=== PATIENT | female | born 1945 | race Caucasian/White ===

== ENCOUNTER 2022-06-02 13:13 | Inpatient (IN) | payer MEDICARE, SELFPAY ==
[2022-06-02 13:54] LABS: #Eosinphils 0.2 thou/uL (0.0-0.7); #Lymphocytes 2.6 thou/uL (1.20-3.40); #Monocytes 0.5 thou/uL (0.11-0.59); #Neutrophils 4.4 thou/uL (1.40-6.50); %Basophils 0.5 % (0.0-1.0); %Eosinophils 2.1 % (0.0-10.0); %Lymphocytes 33.9 % (21.0-51.0); %Monocytes 6.4 % (0.0-10.0); %Neutrophils 57.1 % (42.0-75.0); Hemoglobin 13.1 g/dL (12.0-16.0); Mean Corpuscular HGB CONC 33.5 g/dL (32.0-36.0); Mean Corpuscular Volume 86.5 fL (78.0-98.0); Mean Platelet Volume 8.9 fL (7.4-10.4); Platelet Count 180 thou/uL (130-400); RBC Distribution Width 12.6 % (11.5-14.5); Red Blood Cell (RBC) Count 4.52 mill/uL (4.20-5.40); White Blood Cell (WBC) Count 7.6 thou/uL (4.8-10.8)
[2022-06-02 14:05] LABS: Prothrombin Time 12.9 sec (12.0-14.7)
[2022-06-02 14:06] LABS: PTT 28.5 sec (22.9-36.1)
[2022-06-02 14:15] LABS: ALT (SGPT) 17 U/L (8-55); AST (SGOT) 24 U/L (5-34); Albumin 4.1 g/dL (3.4-4.8); Alkaline Phosphatase 69 U/L (40-110); Anion Gap 14 mmol/L (10-20); BUN (Urea Nitrogen) 17 mg/dL (9.8-20.1); Bilirubin, Total 0.6 mg/dL (0.2-1.2); CK (CPK) 82 U/L (29-168); Calc. Creatinine Clearance 0 mL/min (70-130); Calcium 9.2 mg/dL (7.8-10.44); Carbon Dioxide 29 mmol/L (23-31); Chloride 102 mmol/L (98-107); Estimated GFR 61; Globulin 2.6 g/dL (2.4-3.5); Glucose 107 mg/dL (83-110); Potassium 3.7 mmol/L (3.5-5.1); Protein, Total 6.7 g/dL (5.8-8.1); Sodium 141 mmol/L (136-145)
[2022-06-02] MEDS ORDERED: Ondansetron PF 4 MG/2 ML Vial ONE (14:19)
[2022-06-02] MEDS ORDERED: Iopamidol-370 76% 500 ML 1 ML ONE (14:51)
[2022-06-02] MEDS ORDERED: diphenhydrAMINE 50 MG/ML VIAL ONE (15:05)
[2022-06-02] MEDS ORDERED: niCARdipine 25 MG/10 ML VIAL ONE (15:05)
[2022-06-02] MEDS ORDERED: Lidocaine 1% PF 5 ML VIAL ONE (15:18)
[2022-06-02] MEDS ORDERED: Promethazine HCl 25 MG/ML VIAL IM PRN (16:16)
[2022-06-02] MEDS ORDERED: Ondansetron PF 4 MG/2 ML Vial IVP PRN (16:16)
[2022-06-02] MEDS ORDERED: hydrALAZINE 20 MG/ML VIAL SLOW IVP PRN (16:16)
[2022-06-02 17:05] LABS: Bilirubin Negative (Negative); Blood, Urine Negative (Negative); Clarity Clear (Clear); Glucose, Urine (Dipstick) Normal (Negative); Ketone, Urine Negative (Negative); Leukocyte Negative Leu/uL (Negative); Nitrite Negative (Negative); Protein, Urine (Dipstick) Negative (Neg-Trace); Urobilinogen Normal mg/dL (Less than 2); pH, Urine 6.5 (5.0-9.0)
[2022-06-02] MEDS ORDERED: niCARdipine 25 MG in Sodium Chloride 0.9% 250 ML 250 ML IVPB SCH (17:15)
[2022-06-02] MEDS ORDERED: Furosemide 20 MG/2 ML VIAL SLOW IVP SCH (18:15)
[2022-06-02 18:48] LABS: SARS-CoV-2 NAA Rapid Test Not Detected (NotDetected)
[2022-06-02 18:49] LABS: Magnesium 1.9 mg/dL (1.6-2.6); Phosphorus 3.4 mg/dL (2.3-4.7)
[2022-06-02] MEDS: Acetaminophen 500 MG TAB PO SCH (19:54)
[2022-06-02 20:08] VITALS: BMI 29.0
[2022-06-02] MEDS: Senokot S 8.6-50 MG TAB PO SCH (20:26)
[2022-06-02] MEDS: Famotidine/PF 20 mg/2ml Vial SLOW IVP SCH (20:48)
[2022-06-02] MEDS ORDERED: Labetalol HCl 100 MG TAB PO SCH (21:00)
[2022-06-02] MEDS ORDERED: Lisinopril 20 MG TAB PO SCH (21:00)
[2022-06-02] MEDS ORDERED: Cyclobenzaprine 10 MG TAB PO PRN (23:43)
[2022-06-03] MEDS: Acetaminophen 500 MG TAB PO SCH ×5 (00:13→23:21)
[2022-06-03 04:03] LABS: #Basophils 0.1 thou/uL (0.0-0.2); #Eosinphils 0.1 thou/uL (0.0-0.7); #Lymphocytes 3.2 thou/uL (1.20-3.40); #Monocytes 0.7 thou/uL (0.11-0.59); #Neutrophils 7.4 thou/uL (1.40-6.50); %Basophils 0.5 % (0.0-1.0); %Eosinophils 0.6 % (0.0-10.0); %Lymphocytes 28.2 % (21.0-51.0); %Monocytes 6.2 % (0.0-10.0); %Neutrophils 64.5 % (42.0-75.0); Hemoglobin 13.7 g/dL (12.0-16.0); Mean Corpuscular HGB CONC 34.5 g/dL (32.0-36.0); Mean Corpuscular Hemoglobin 29.9 pg (27.0-31.0); Mean Corpuscular Volume 86.5 fL (78.0-98.0); Mean Platelet Volume 9.2 fL (7.4-10.4); Platelet Count 185 thou/uL (130-400); RBC Distribution Width 12.7 % (11.5-14.5); Red Blood Cell (RBC) Count 4.57 mill/uL (4.20-5.40); White Blood Cell (WBC) Count 11.5 thou/uL (4.8-10.8)
[2022-06-03 04:24] LABS: Anion Gap 15 mmol/L (10-20); BUN (Urea Nitrogen) 15 mg/dL (9.8-20.1); Calc. Creatinine Clearance 52 mL/min (70-130); Calcium 9.4 mg/dL (7.8-10.44); Carbon Dioxide 27 mmol/L (23-31); Chloride 102 mmol/L (98-107); Estimated GFR 56; Glucose 98 mg/dL (83-110); Potassium 3.2 mmol/L (3.5-5.1); Sodium 141 mmol/L (136-145)
[2022-06-03] MEDS ORDERED: Potassium Chloride 20 MEQ TAB PO SCH (04:30)
[2022-06-03] MEDS: Potassium Chloride 20 MEQ in Premix Bag 1 BAG IVPB SCH ×2 (05:30→08:00)
[2022-06-03] MEDS ORDERED: Furosemide 80 MG TAB PO SCH (07:30)
[2022-06-03] MEDS: Zinc Sulfate 220 MG CAP PO SCH (08:02)
[2022-06-03] MEDS: Polyethylene Glycol 3350 17 GM Packet PO SCH (08:03)
[2022-06-03] MEDS: Senokot S 8.6-50 MG TAB PO SCH ×2 (08:03→20:51)
[2022-06-03] MEDS: Famotidine/PF 20 mg/2ml Vial SLOW IVP SCH (08:03)
[2022-06-03] MEDS ORDERED: Furosemide 40 MG TAB PO SCH (09:00)
[2022-06-03] MEDS ORDERED: Atenolol 25 MG TAB PO SCH (09:00)
[2022-06-03] MEDS ORDERED: Amlodipine 10 MG TAB PO SCH (09:30)
[2022-06-03] MEDS ORDERED: Scopolamine 1.5 mg/72 hour Patch TD SCH (10:00)
[2022-06-04] MEDS: Acetaminophen 500 MG TAB PO SCH ×2 (05:08→12:09)
[2022-06-04] MEDS ORDERED: Furosemide 20 MG TAB PO SCH (09:00)
[2022-06-04] MEDS ORDERED: Amlodipine 10 MG TAB PO SCH (09:00)
[2022-06-04] MEDS: Senokot S 8.6-50 MG TAB PO SCH (09:53)
[2022-06-04] MEDS: Polyethylene Glycol 3350 17 GM Packet PO SCH (09:53)
[2022-06-04] MEDS: Zinc Sulfate 220 MG CAP PO SCH (09:54)
[2022-06-04 14:01] VITALS: BP 135/78; TEMP 97.9
== END 2022-06-04 14:01 | disposition home or self-care (01) | DRG 86 ==
LOC: ERS 13:13 → CCU 16:20 → SJJU 06-03 12:24
PROVIDERS: ADMIT Neurological Surgery; ATTEND Surgery
PROC: 0HQ0XZZ Repair Scalp Skin, External Approach (ICD-10-PCS; principal; 2022-06-02)
DX: S06.6X1A Traumatic subarachnoid hemorrhage with loss of consciousness of 30 minutes or less, initial encounter (principal); I16.1 Hypertensive emergency; S01.01XA Laceration without foreign body of scalp, initial encounter; I10 Essential (primary) hypertension; Z20.822 Contact with and (suspected) exposure to COVID-19; R00.1 Bradycardia, unspecified; R40.2362 Coma scale, best motor response, obeys commands, at arrival to emergency department; R40.2142 Coma scale, eyes open, spontaneous, at arrival to emergency department; R40.2252 Coma scale, best verbal response, oriented, at arrival to emergency department; W18.30XA Fall on same level, unspecified, initial encounter; Y92.002 Bathroom of unspecified non-institutional (private) residence as the place of occurrence of the external cause; Z86.16 Personal history of COVID-19; Z85.528 Personal history of other malignant neoplasm of kidney; Z90.49 Acquired absence of other specified parts of digestive tract; Z90.710 Acquired absence of both cervix and uterus; Z79.899 Other long term (current) drug therapy; Z79.82 Long term (current) use of aspirin; Z87.19 Personal history of other diseases of the digestive system
CPT/HCPCS: 12032; 36415; 70450; 70496; 71045; 72125; 72170; 80048; 80053; 81003; 82550; 83735; 83880; 84100; 84146; 84443; 84484; 85025; 85610; 85730; 87086; 93005; 94760; 96374; 96375; G0390; J0360; J1200; J2405; J3480; Q9967; S0028; U0002